=== PATIENT | female | born 1970 | race American Indian/Alaskan Native ===

== ENCOUNTER 2022-07-13 14:48 | Emergency (ER) | payer SELFPAY ==
--- NOTE | 2022-07-13 16:12 | XRay Report ---
CHEST 2 VIEWS INDICATION / CLINICAL INFORMATION: chest congestion. COMPARISON: None available. FINDINGS: SUPPORT DEVICES: None. HEART / MEDIASTINUM: No significant abnormality. LUNGS / PLEURA: No significant pulmonary abnormality. No significant pleural effusion. No pneumothora x. ADDITIONAL FINDINGS: No significant additional findings. IMPRESSION: 1. No acute abnormality of the chest. Signer Name: Jag Guidry MD Signed: 07/13/2022 4:08 PM Workstation Name: [employer]
[2022-07-13] MEDS ORDERED: predniSONE 20 MG TAB PO ONE (18:37)
[2022-07-13] MEDS ORDERED: BENZONATATE 100 MG CAP PO ONE (18:37)
--- NOTE | 2022-07-13 19:09 | Emergency Department Report ---
ED ENT HPI - General Chief complaint: Upper Respiratory Infection Stated complaint: CONGESTION Time Seen by Provider: 07/13/22 18:32 Source: patient Mode of arrival: Stretcher Limitations: No Limitations - History of Present Illness Initial comments: 52 yo black female with no pmh presents to ed for evaluation of 3 day history of cough, congestion, and worsening fatigue. She denies fever, sob, and n/v. She denies sick contacts. MD complaint: other (cough, congestion, and fatigue) -: Gradual, days(s) (3) Severity scale (0 -10): 0 Associated Symptoms: cough, rhinorrhea. denies: fever, gum swelling, toothache, pain with swallowing, sore throat, tinnitus, hearing loss, discharge from ear - Related Data Previous Rx's Medication Instructions Recorded Last Taken Type atenoloL [Tenormin] 25 mg PO DAILY #30 tablet 12/17/13 Unknown Rx hydroCHLOROthiazide [HCTZ] 25 mg PO QDAY #30 tablet 12/17/13 Unknown Rx Benzonatate [Tessalon Perles] 100 mg PO Q8HR PRN #30 cap 07/13/22 Unknown Rx Prednisone [predniSONE 10 mg 10 mg PO .TAPER #1 pack 07/13/22 Unknown Rx (6-Day Pack, 21 Tabs)] guaiFENesin/CODEINE [Robitussin AC] 10 ml PO TID PRN #120 ml 07/13/22 Unknown Rx Allergies Allergy/AdvReac Type Severity Reaction Status Date / Time No Known Allergies Allergy Verified 07/13/22 15:00 ED Dental HPI - General Chief complaint: Upper Respiratory Infection Stated complaint: CONGESTION Time Seen by Provider: 07/13/22 18:32 Source: patient Mode of arrival: Stretcher Limitations: No Limitations - Related Data Previous Rx's Medication Instructions Recorded Last Taken Type atenoloL [Tenormin] 25 mg PO DAILY #30 tablet 12/17/13 Unknown Rx hydroCHLOROthiazide [HCTZ] 25 mg PO QDAY #30 tablet 12/17/13 Unknown Rx Benzonatate [Tessalon Perles] 100 mg PO Q8HR PRN #30 cap 07/13/22 Unknown Rx Prednisone [predniSONE 10 mg 10 mg PO .TAPER #1 pack 07/13/22 Unknown Rx (6-Day Pack, 21 Tabs)] guaiFENesin/CODEINE [Robitussin AC] 10 ml PO TID PRN #120 ml 07/13/22 Unknown Rx Allergies Allergy/AdvReac Type Severity Reaction Status Date / Time No Known Allergies Allergy Verified 07/13/22 15:00 ED Review of Systems ROS: Stated complaint: CONGESTION Other details as noted in HPI Comment: All other systems reviewed and negative Constitutional: malaise. denies: chills, fever Eyes: denies: eye pain ENT: congestion. denies: ear pain, throat pain Respiratory: cough. denies: shortness of breath, SOB with exertion, wheezing Cardiovascular: denies: chest pain, palpitations Gastrointestinal: denies: abdominal pain, nausea, vomiting Genitourinary: denies: urgency, dysuria, frequency, hematuria, discharge Musculoskeletal: denies: back pain Neurological: denies: headache, weakness ED Past Medical Hx - Past Medical History Previous Medical History?: Yes Hx Hypertension: Yes - Surgical History Additional Surgical History: c section x 3, tubal ligation - Social History Smoking Status: Current Some Day Smoker Substance Use Type: None - Medications Home Medications: Home Medications Medication Instructions Recorded Confirmed Last Taken Type atenoloL [Tenormin] 25 mg PO DAILY #30 tablet 12/17/13 Unknown Rx hydroCHLOROthiazide [HCTZ] 25 mg PO QDAY #30 tablet 12/17/13 Unknown Rx Benzonatate [Tessalon Perles] 100 mg PO Q8HR PRN #30 cap 07/13/22 Unknown Rx Prednisone [predniSONE 10 mg 10 mg PO .TAPER #1 pack 07/13/22 Unknown Rx (6-Day Pack, 21 Tabs)] guaiFENesin/CODEINE [Robitussin AC] 10 ml PO TID PRN #120 ml 07/13/22 Unknown Rx ED Physical Exam - General Limitations: No Limitations General appearance: alert, in no apparent distress - Head Head exam: Present: atraumatic, normocephalic - Eye Eye exam: Present: normal appearance. Absent: conjunctival injection, periorbital swelling, periorbital tenderness - ENT ENT exam: Present: normal exam (bilateral nasl mucosal edema). Absent: normal orophraynx (erythema noted to posterior oral pharynx) - Neck Neck exam: Present: normal inspection. Absent: lymphadenopathy - Respiratory Respiratory exam: Present: normal lung sounds bilaterally. Absent: respiratory distress, wheezes, rales, rhonchi, stridor, chest wall tenderness - Cardiovascular Cardiovascular Exam: Present: regular rate, normal heart sounds - GI/Abdominal GI/Abdominal exam: Present: soft, normal bowel sounds. Absent: distended, tenderness, guarding, rebound, rigid - Extremities Exam Extremities exam: Present: normal inspection, full ROM, normal capillary refill. Absent: tenderness, pedal edema, joint swelling, calf tenderness - Back Exam Back exam: Present: normal inspection. Absent: CVA tenderness (R), CVA tenderness (L) - Neurological Exam Neurological exam: Present: alert, oriented X3, CN II-XII intact, normal gait - Psychiatric Psychiatric exam: Present: normal affect, normal mood - Skin Skin exam: Present: warm, dry, intact, normal color ED Course Vital Signs 07/13/22 07/13/22 14:59 19:19 Temperature 98.1 F Pulse Rate 82 84 Respiratory 15 16 Rate Blood Pressure 179/110 170/91 [Left] O2 Sat by Pulse 98 96 Oximetry ED Medical Decision Making - Radiology Data Radiology results: report reviewed, image reviewed CXR: FINDINGS: SUPPORT DEVICES: None. HEART / MEDIASTINUM: No significant abnormality. LUNGS / PLEURA: No significant pulmonary abnormality. No significant pleural effusion. No pneumothorax. ADDITIONAL FINDINGS: No significant additional findings. IMPRESSION: 1. No acute abnormality of the chest. - Medical Decision Making 52 yo black female with no pmh presents to ed for evaluation of 3 day history of cough, congestion, and worsening fatigue. She denies fever, sob, and n/v. She denies sick contacts. Physical exam unremarkable and cxr without any acute abnormalities noted. Patient will be treated with steroid dose pack and tessalone perles. She is advised to follow up with her pcp if no improvement or worsening symptoms and return to ED as needed. She verbalized understanding of and agreement with plan of care. Critical care attestation.: If time is entered above; I have spent that time in minutes in the direct care of this critically ill patient, excluding procedure time. ED Disposition Clinical Impression: URI with cough and congestion Disposition: 01 HOME / SELF CARE / HOMELESS Is pt being admited?: No Does the pt Need Aspirin: No Condition: Stable Instructions: Upper Respiratory Infection, Adult, [id number] Additional Instructions: Take medications as prescribed. Follow-up with your primary care provider if no improvement or worsening symptoms. Return to the emergency department as needed. Prescriptions: Prednisone [predniSONE 10 mg (6-Day Pack, 21 Tabs)] 10 mg PO .TAPER #1 pack guaiFENesin/CODEINE [Robitussin AC] 10 ml PO TID PRN #120 ml PRN Reason: Cough Benzonatate [Tessalon Perles] 100 mg PO Q8HR PRN #30 cap PRN Reason: Cough Referrals: MAYRA WAY MD [Staff Physician] - 3-5 Days Forms: Work/School Release Form(ED) Time of Disposition: 19:10
[2022-07-13 19:24] VITALS: BP 170/91
== END 2022-07-13 19:19 | disposition home or self-care (01) ==
LOC: ED 14:48
DX: J06.9 Acute upper respiratory infection, unspecified (principal); I10 Essential (primary) hypertension; F17.200 Nicotine dependence, unspecified, uncomplicated
CPT/HCPCS: 71046; 99283